=== PATIENT | male | born 1975 | race Caucasian/White ===

== ENCOUNTER 2023-12-26 11:52 | Emergency (ER) | payer OTHER, SELFPAY ==
[2023-12-26] MEDS ORDERED: HYDROcodone/Acetaminophen 5/325 mg Tablet ONE (14:33)
== END 2023-12-26 15:30 | disposition home or self-care (01) ==
LOC: ERS 11:52
DX: M25.571 Pain in right ankle and joints of right foot (principal); M79.671 Pain in right foot; E11.9 Type 2 diabetes mellitus without complications; I10 Essential (primary) hypertension; F17.220 Nicotine dependence, chewing tobacco, uncomplicated; Z79.4 Long term (current) use of insulin

== ENCOUNTER 2024-07-06 19:49 | Inpatient (IN) | payer OTHER, SELFPAY ==
[2024-07-07 00:19] VITALS: BMI 34.0
[2024-07-07] MEDS ORDERED: Acetaminophen 650 MG Suppository PR PRN (01:17)
[2024-07-07] MEDS ORDERED: Acetaminophen 325 MG TAB PO PRN (01:17)
[2024-07-07] MEDS ORDERED: Ondansetron ODT 4 MG TAB PO PRN (01:17)
[2024-07-07] MEDS ORDERED: Nicotine 14 MG PATCH TD PRN (01:17)
[2024-07-07] MEDS ORDERED: Ondansetron PF 4 MG/2 ML Vial IVP PRN (01:17)
[2024-07-07] MEDS ORDERED: Calcium Carbonate 500 MG ChewTAB PO PRN (01:17)
[2024-07-07] MEDS ORDERED: Lorazepam 2 MG/ML VIAL IM PRN (01:19)
[2024-07-07] MEDS ORDERED: Lorazepam 1 MG TAB PO PRN (01:19)
[2024-07-07] MEDS ORDERED: Electrolyte Replacement Protocol FS SCH (01:30)
[2024-07-07] MEDS: Thiamine HCl 200 MG/2 ML VIAL SLOW IVP SCH (01:48)
[2024-07-07] MEDS: Lorazepam 1 MG TAB PO SCH (01:49)
[2024-07-07] MEDS ORDERED: hydrALAZINE 20 MG/ML VIAL SLOW IVP PRN (02:16)
[2024-07-07 04:40] LABS: #Basophils 0.03 10x3/uL (0.0-0.2); %Basophils 0.7 % (0.0-1.0); %Eosinophils 2.4 % (0.0-10.0); %Monocytes 10.4 % (0.0-10.0); Hematocrit 37.2 % (42.0-52.0); Hemoglobin 13.6 g/dL (14.0-18.0); Mean Corpuscular HGB CONC 36.6 g/dL (32.0-36.0); Mean Corpuscular Hemoglobin 31.3 pg (27.0-31.0); Mean Corpuscular Volume 85.5 fL (78.0-98.0); Mean Platelet Volume 11.4 fL (7.4-10.4); Platelet Count 168 10x3/uL (130-400); RBC Distribution Width 13.2 % (11.5-14.5); Red Blood Cell (RBC) Count 4.35 mill/uL (4.70-6.10)
[2024-07-07 04:52] LABS: ALT (SGPT) 44 U/L (8-55); AST (SGOT) 30 U/L (5-34); Albumin 2.2 g/dL (3.5-5.0); Alkaline Phosphatase 90 U/L (40-110); Anion Gap 11 mmol/L (10-20); BUN (Urea Nitrogen) 15 mg/dL (8.9-20.6); Bilirubin, Total 0.3 mg/dL (0.2-1.2); Calc. Creatinine Clearance 129 mL/min (70-130); Calcium 8.2 mg/dL (7.8-10.44); Carbon Dioxide 22 mmol/L (22-29); Cardiac Risk 5.2 (Less than 4.5); Chloride 103 mmol/L (98-107); Cholesterol 178 mg/dl (< 200 Desired); Estimated GFR 80; Globulin 3.6 g/dL (2.4-3.5); Glucose 394 mg/dL (70-105); HDL Cholesterol 34 mg/dL (>60 Neg Risk); LDL Cholesterol, Calculated 66 mg/dL; Potassium 3.8 mmol/L (3.5-5.1); Protein, Total 5.8 g/dL (6.0-8.3); Sodium 132 mmol/L (136-145); Triglycerides 388 mg/dL (Less than 150)
[2024-07-07 04:55] LABS: Hemoglobin A1c 9.4 % (4.0-6.0)
[2024-07-07] MEDS ORDERED: Dextrose 50% Abboject 50 ML SYRINGE SLOW IVP PRN (06:11)
[2024-07-07] MEDS ORDERED: Dextrose 5% in Water 1,000 ML IV PRN (06:11)
[2024-07-07] MEDS ORDERED: Glucagon 1 MG/ML KIT IM PRN (06:11)
[2024-07-07] MEDS: Insulin Regular, Human 100 UNIT/ML 10 ML VIAL ONE (06:17)
[2024-07-07] MEDS: Insulin Regular, Human 100 UNIT/ML 10 ML VIAL IVP SCH (06:18)
[2024-07-07] MEDS: Acetaminophen/Codeine 30-300mg Tablet PO SCH (06:21)
[2024-07-07] MEDS ORDERED: Electrolyte Replacement Protocol FS PRN (07:45)
[2024-07-07] MEDS: Aspirin 81 mg Enteric Coated Tablet PO SCH (08:58)
[2024-07-07] MEDS: Rosuvastatin 20 MG TAB PO SCH (08:58)
[2024-07-07] MEDS: Folic Acid 1 MG TAB PO SCH (08:58)
[2024-07-07] MEDS: Multivit, Therapeutic 1 TAB PO SCH (08:58)
[2024-07-07] MEDS: Amlodipine 5 MG TAB PO SCH ×2 (08:58→20:57)
[2024-07-07] MEDS: Empagliflozin 10 MG TAB PO SCH (08:58)
[2024-07-07] MEDS: Famotidine 20 MG TAB PO SCH (08:58)
[2024-07-07] MEDS: Lisinopril 20 MG TAB PO SCH (08:58)
[2024-07-07] MEDS: Famotidine/PF 20 mg/2ml Vial SLOW IVP SCH (08:59)
[2024-07-07] MEDS ORDERED: Aspirin 81 mg Enteric Coated Tablet PO SCH (09:00)
[2024-07-07] MEDS: Insulin Regular, Human 100 UNIT/ML 10 ML VIAL SC PRN (09:09)
[2024-07-07] MEDS: hydrALAZINE 20 MG/ML VIAL SLOW IVP SCH (17:09)
[2024-07-07] MEDS: Insulin Glargine 30 UNITS/0.3 ML VIAL SC SCH (20:58)
[2024-07-07] MEDS ORDERED: Atorvastatin Calcium 40 MG TAB PO SCH (21:00)
[2024-07-07] MEDS: Insulin Lispro 100 UNIT/ML 10 ML VIAL SC PRN (21:30)
[2024-07-08] MEDS: Labetalol HCl 100 MG/20 ML VIAL SLOW IVP PRN (00:26)
[2024-07-08] MEDS ORDERED: Lorazepam 1 MG TAB PO PRN (01:20)
[2024-07-08] MEDS: Lisinopril 20 MG TAB PO SCH (10:34)
[2024-07-08] MEDS: Insulin Glargine 30 UNITS/0.3 ML VIAL SC SCH ×2 (12:30→22:14)
[2024-07-08] MEDS: hydrALAZINE 25 MG TAB PO SCH (15:44)
[2024-07-09] MEDS ORDERED: Lorazepam 1 MG TAB PO PRN (01:20)
[2024-07-09] MEDS: Lorazepam 0.5 MG TAB PO SCH (02:50)
[2024-07-09 03:52] LABS: #Basophils 0.05 10x3/uL (0.0-0.2); %Eosinophils 2.7 % (0.0-10.0); %Lymphocytes 40.3 % (21.0-51.0); %Monocytes 12.1 % (0.0-10.0); %Neutrophils 43.5 % (42.0-75.0); Hematocrit 37.3 % (42.0-52.0); Hemoglobin 13.1 g/dL (14.0-18.0); Mean Corpuscular HGB CONC 35.1 g/dL (32.0-36.0); Mean Corpuscular Volume 88.4 fL (78.0-98.0); Mean Platelet Volume 10.8 fL (7.4-10.4); Platelet Count 191 10x3/uL (130-400); RBC Distribution Width 12.8 % (11.5-14.5); Red Blood Cell (RBC) Count 4.22 mill/uL (4.70-6.10)
[2024-07-09 04:07] LABS: Anion Gap 11 mmol/L (10-20); BUN (Urea Nitrogen) 16 mg/dL (8.9-20.6); Calc. Creatinine Clearance 149 mL/min (70-130); Calcium 8.2 mg/dL (7.8-10.44); Carbon Dioxide 24 mmol/L (22-29); Chloride 109 mmol/L (98-107); Estimated GFR 95; Glucose 195 mg/dL (70-105); Potassium 3.6 mmol/L (3.5-5.1); Sodium 140 mmol/L (136-145)
[2024-07-09] MEDS: Losartan 25 MG TAB PO SCH (13:47)
[2024-07-10] MEDS ORDERED: Lorazepam 0.5 MG TAB PO PRN (01:20)
[2024-07-10 03:49] LABS: #Basophils 0.06 10x3/uL (0.0-0.2); %Basophils 1.2 % (0.0-1.0); %Eosinophils 2.9 % (0.0-10.0); %Lymphocytes 37.5 % (21.0-51.0); %Monocytes 10.4 % (0.0-10.0); %Neutrophils 47.4 % (42.0-75.0); Hematocrit 38.8 % (42.0-52.0); Hemoglobin 13.3 g/dL (14.0-18.0); Mean Corpuscular HGB CONC 34.3 g/dL (32.0-36.0); Mean Corpuscular Hemoglobin 30.4 pg (27.0-31.0); Mean Corpuscular Volume 88.8 fL (78.0-98.0); Mean Platelet Volume 10.5 fL (7.4-10.4); Platelet Count 214 10x3/uL (130-400); RBC Distribution Width 12.5 % (11.5-14.5); Red Blood Cell (RBC) Count 4.37 mill/uL (4.70-6.10)
[2024-07-10 04:03] LABS: Anion Gap 12 mmol/L (10-20); BUN (Urea Nitrogen) 21 mg/dL (8.9-20.6); Calc. Creatinine Clearance 120 mL/min (70-130); Calcium 8.6 mg/dL (7.8-10.44); Carbon Dioxide 23 mmol/L (22-29); Chloride 108 mmol/L (98-107); Estimated GFR 73; Glucose 258 mg/dL (70-105); Potassium 3.7 mmol/L (3.5-5.1); Sodium 139 mmol/L (136-145)
[2024-07-10] MEDS: Thiamine 100 MG TAB PO SCH (08:22)
[2024-07-10] MEDS: hydrALAZINE 25 MG TAB PO SCH (08:23)
[2024-07-10] MEDS: Carvedilol 6.25 MG TAB PO SCH (08:23)
[2024-07-10] MEDS: Losartan 25 MG TAB PO SCH (08:29)
[2024-07-10] MEDS: Insulin Lispro 100 UNIT/ML 10 ML VIAL SC PRN (12:17)
[2024-07-10 15:28] VITALS: BP 144/98; TEMP 97.9
== END 2024-07-10 17:52 | disposition home or self-care (01) | DRG 65 ==
LOC: 2SE 19:49
PROVIDERS: ADMIT Student in an Organized Health Care Education/Training Program; ATTEND Student in an Organized Health Care Education/Training Program
DX: I63.9 Cerebral infarction, unspecified (principal); G81.91 Hemiplegia, unspecified affecting right dominant side; N18.30 Chronic kidney disease, stage 3 unspecified; E78.5 Hyperlipidemia, unspecified; I12.9 Hypertensive chronic kidney disease with stage 1 through stage 4 chronic kidney disease, or unspecified chronic kidney disease; E11.22 Type 2 diabetes mellitus with diabetic chronic kidney disease; F10.10 Alcohol abuse, uncomplicated; Z71.41 Alcohol abuse counseling and surveillance of alcoholic; Z91.148 Patient's other noncompliance with medication regimen for other reason; Z79.82 Long term (current) use of aspirin; Z79.84 Long term (current) use of oral hypoglycemic drugs; Z79.890 Hormone replacement therapy
CPT/HCPCS: 36415; 36416; 70551; 80048; 80053; 80061; 83036; 85025; 93306; J0360; J1815; J3411